=== PATIENT | female | born 1990 | race Caucasian/White ===

== ENCOUNTER 2019-01-13 12:47 | Observation (INO) ==
[2019-01-13 14:15] LABS: Hematocrit 39.8 % (35.3-44.9); Hemoglobin 13.5 g/dL (11.5-15.4); Mean Corpuscular HGB Conc 33.9 g/dL (31.6-35.5); Mean Corpuscular Hemoglobin 29.9 pg (28.0-33.3); Mean Corpuscular Volume 88.1 fL (83.0-100.0); Mean Platelet Volume 10.9 fL (9.4-12.4); Platelet Count 296 K/mcL (140-400); Red Blood Count 4.52 M/mcL (3.82-4.97); Red Cell Distribution Width 12.6 % (11.5-14.5); White Blood Count 15.5 K/mcL (4.3-11.1)
[2019-01-13 14:20] LABS: Bilirubin,Urine Negative (Negative); Blood,Urine Negative (Negative); Clarity,Urine Cloudy (Clear); Color,Urine Yellow (Yellow); Glucose,Urine (UA) Normal (Normal); Ketones,Urine Negative (Negative); Leukocyte Esterase,Urine Negative (Negative); Nitrite,Urine Negative (Negative); Protein,Urine Trace mg/dL (Neg-Trace); Specific Gravity,Urine 1.017 (1.010-1.025); Urobilinogen,Urine >=8.0 mg/dL (Normal)
[2019-01-13 14:26] LABS: Bacteria,Urine None Seen per hpf (None-Few); Hyaline Casts,Urine None Seen per lpf (None-Few); RBC,Urine 0-3 per hpf (0-3); Squamous Epithelial Cell,Urine Many per lpf (None-Few); WBC,Urine 0-3 per hpf (0-3)
[2019-01-13 14:29] LABS: BUN/Creatinine Ratio 4 (6-26); Blood Urea Nitrogen 3 mg/dL (6-20); Calcium 9.1 mg/dL (8.6-10.3); Carbon Dioxide 26 mEq/L (23-29); Chloride 103 mEq/L (98-107); Glucose 112 mg/dL (70-105); Osmolality,Calculated 277 (280-300); Potassium 3.2 mEq/L (3.5-5.1); Sodium 135 mEq/L (136-145); eGFR For African Americans > 60 (> 60); eGFR For Non-African Americans > 60 (> 60)
--- NOTE | 2019-01-13 14:42 | Emergency Department Note ---
Disposition Clinical Impression: Fever, Thoracic back pain Disposition: Admitted As Inpatient Condition: Fair Referrals: NONE,PCP [Primary Care Provider] - Forms: ED Satisfaction Letter Time of Disposition: 23:01 General Adult HPI - General Chief complaint: ED Back Pain/Injury Stated complaint: Low back pain,fever,chills,knee pain Time Seen by Provider: 01/13/19 13:02 Source: patient Limitations: no limitations Nursing Notes Reviewed: Yes Vital Signs Reviewed: Yes - History of Present Illness HPI Narrative: Right-sided back pain which started last night when she was getting into bed and the pain is worse with range of motion. Sharp. Her dominant right side with some midline. She denies IV drug use. She denies any dysuria or urinary frequency, blood in the urine or stool, vaginal bleeding or discharge. I inserted gradually. No vomiting. Does have fever. No abdominal pain. Social history: + smoking but no alcohol or drugs Pain Scale: 9 - Related Data Home Medications Medication Instructions Recorded Confirmed Desogestrel-Ethinyl Estradiol 1 tab PO DAILY 01/13/19 01/13/19 [Isibloom 28 Day Tablet] Allergies Allergy/AdvReac Type Severity Reaction Status Date / Time No Known Allergies Allergy Verified 01/13/19 22:57 All systems ED: reviewed and negative except as stated. 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 EYES: PERRL, no scleral icterus. NOSE: The nose is normal in appearance without rhinorrhea RESP: Normal chest excursion with respiration; breath sounds clear and equal bilaterally; no wheezes, rhonchi, or rales CARD: Regular rhythm, without murmurs, rub or gallop ABD: Non-distended; non-tender, soft,without rigidity, rebound or guarding SKIN: Normal for age and race; warm and dry; no apparent lesions Back: Normal appearance, right CVA tenderness moderate degree - General Limitations: no limitations General appearance: alert, in no apparent distress Course Vital Signs Temperature 100.8 F H 01/13/19 12:48 Pulse Rate 146 01/13/19 12:48 Respiratory Rate 6 01/13/19 12:48 Blood Pressure 156/104 01/13/19 12:48 O2 Sat by Pulse Oximetry 100 01/13/19 12:48 Temperature 102.4 F H 01/13/19 20:36 Pulse Rate 111 01/13/19 20:36 Respiratory Rate 16 01/13/19 20:36 Blood Pressure 127/80 01/13/19 20:36 O2 Sat by Pulse Oximetry 97 01/13/19 20:36 Oxygen Delivery Oxygen Delivery Room Air Medical Decision Making - MDM Narrative Medical decision making narrative: I did review the test results with minimal elevation in white blood cell count, lactate is less than 2, urine does not show signs of infection, CT scan is pending. 1441 I did go back and reassessed the patient and she does have increased amount of swelling in the right upper thoracic area of the back skin is normal in appearance. This area is warm and swollen and different than the left side. I will add a IV contrast thoracic CT for further assessment. She will also receive additional IV fluids and 10 IV Toradol 183 I did speak with the hospitalist Dr. Salinas who accepts the patient for admission. We have cultures pending. I did review the CT scan of the chest which does not reveal any acute abnormality but do feel that the likely source of infection is right upper back. I do not suspect a necrotizing soft tissue infection at this time she is not a surgical candidate but will need to be watched closely to ensure that her symptoms do not progress and she will be watched closely including vital signs with tachycardia watch for hypertension and clinically reassessed. 1 - Medical Records Medical records reviewed: Yes I reviewed the patient's medical records. - Lab Data Lab results reviewed: Yes I reviewed the patient's lab results. Result diagrams: 01/13/19 13:58 01/13/19 13:58 Lab Results 01/13/19 01/13/19 01/13/19 Range/Units 13:58 13:58 13:58 WBC 15.5 H (4.3-11.1) K/mcL RBC 4.52 (3.82-4.97) M/mcL Hgb 13.5 (11.5-15.4) g/dL Hct 39.8 (35.3-44.9) % MCV 88.1 (83.0-100.0) fL MCH 29.9 (28.0-33.3) pg MCHC 33.9 (31.6-35.5) g/dL RDW 12.6 (11.5-14.5) % Plt Count 296 (140-400) K/mcL MPV 10.9 (9.4-12.4) fL Sodium 135 L (136-145) mEq/L Potassium 3.2 L (3.5-5.1) mEq/L Chloride 103 (98-107) mEq/L Carbon Dioxide 26 (23-29) mEq/L BUN 3 L (6-20) mg/dL Creatinine 0.71 (0.60-1.20) mg/dL Est GFR ( Amer) > 60 (> 60) Est GFR (Non-Af Amer) > 60 (> 60) BUN/Creatinine Ratio 4 L (6-26) Glucose 112 H (70-105) mg/dL Calculated Osmolality 277 L (280-300) Lactic Acid 1.7 (0.5-2.2) mmol/L Calcium 9.1 (8.6-10.3) mg/dL Total Bilirubin 0.5 (0.3-1.0) mg/dL Direct Bilirubin 0.1 (0.0-0.2) mg/dL Indirect Bilirubin 0.4 (0.0-1.2) mg/dL AST 39 (13-39) Units/L ALT 10 (7-52) Units/L Alkaline Phosphatase 63 (34-104) Units/L Serum Total Protein 7.3 (6.4-8.9) g/dL Albumin 3.8 (3.5-5.7) g/dL Globulin 3.5 (2.4-3.5) g/dL Albumin/Globulin Ratio 1.1 (1.1-2.2) Lipase < 3 L (11-82) Units/L Urine Color (Yellow) Urine Clarity (Clear) Urine pH (5.0-8.0) pH Units Ur Specific [place] (1.010-1.025) Urine Protein (Neg-Trace) mg/dL Urine Glucose (UA) (Normal) mg/dL Urine Ketones (Negative) mg/dL Urine Blood (Negative) Urine Nitrite (Negative) Urine Bilirubin (Negative) Urine Urobilinogen (Normal) mg/dL Ur Leukocyte Esterase (Negative) Urine Microscopic RBC (0-3) per hpf Urine Microscopic WBC (0-3) per hpf Ur Squamous Epith Cells (None-Few) per lpf Urine Bacteria (None-Few) per hpf Hyaline Casts (None-Few) per lpf Urine Test (Negative) 01/13/19 01/13/19 Range/Units 14:04 14:04 WBC (4.3-11.1) K/mcL RBC (3.82-4.97) M/mcL Hgb (11.5-15.4) g/dL Hct (35.3-44.9) % MCV (83.0-100.0) fL MCH (28.0-33.3) pg MCHC (31.6-35.5) g/dL RDW (11.5-14.5) % Plt Count (140-400) K/mcL MPV (9.4-12.4) fL Sodium (136-145) mEq/L Potassium (3.5-5.1) mEq/L Chloride (98-107) mEq/L Carbon Dioxide (23-29) mEq/L BUN (6-20) mg/dL Creatinine (0.60-1.20) mg/dL Est GFR ( Amer) (> 60) Est GFR (Non-Af Amer) (> 60) BUN/Creatinine Ratio (6-26) Glucose (70-105) mg/dL Calculated Osmolality (280-300) Lactic Acid (0.5-2.2) mmol/L Calcium (8.6-10.3) mg/dL Total Bilirubin (0.3-1.0) mg/dL Direct Bilirubin (0.0-0.2) mg/dL Indirect Bilirubin (0.0-1.2) mg/dL AST (13-39) Units/L ALT (7-52) Units/L Alkaline Phosphatase (34-104) Units/L Serum Total Protein (6.4-8.9) g/dL Albumin (3.5-5.7) g/dL Globulin (2.4-3.5) g/dL Albumin/Globulin Ratio (1.1-2.2) Lipase (11-82) Units/L Urine Color Yellow (Yellow) Urine Clarity Cloudy A (Clear) Urine pH 7.0 (5.0-8.0) pH Units Ur Specific [place] 1.017 (1.010-1.025) Urine Protein Trace (Neg-Trace) mg/dL Urine Glucose (UA) Normal (Normal) mg/dL Urine Ketones Negative (Negative) mg/dL Urine Blood Negative (Negative) Urine Nitrite Negative (Negative) Urine Bilirubin Negative (Negative) Urine Urobilinogen >=8.0 H (Normal) mg/dL Ur Leukocyte Esterase Negative (Negative) Urine Microscopic RBC 0-3 (0-3) per hpf Urine Microscopic WBC 0-3 (0-3) per hpf Ur Squamous Epith Cells Many H (None-Few) per lpf Urine Bacteria None Seen (None-Few) per hpf Hyaline Casts None Seen (None-Few) per lpf Urine Test Negative (Negative)
[2019-01-13] MEDS: 0.9 % Sodium Chloride 1,000 ML IVC SCH ×2 (14:57→17:24)
[2019-01-13 17:04] LABS: Alanine Aminotransferase 10 Units/L (7-52); Albumin 3.8 g/dL (3.5-5.7); Albumin/Globulin Ratio 1.1 (1.1-2.2); Alkaline Phosphatase 63 Units/L (34-104); Aspartate Amino Transferase 39 Units/L (13-39); Bilirubin,Direct 0.1 mg/dL (0.0-0.2); Bilirubin,Indirect 0.4 mg/dL (0.0-1.2); Bilirubin,Total 0.5 mg/dL (0.3-1.0); Globulin 3.5 g/dL (2.4-3.5); Lipase < 3 Units/L (11-82); Total Protein 7.3 g/dL (6.4-8.9)
[2019-01-13] MEDS ORDERED: Ketorolac 15 MG/ML VIAL IVP ONE (18:38)
[2019-01-13] MEDS ORDERED: 0.9 % Sodium Chloride 500 ML IVC ONE (18:38)
[2019-01-13] MEDS ORDERED: Piperacillin/Tazobactam 3.375 GM in 0.9 % Sodium Chloride Mini Bag 100 ML IVPB ONE (19:11)
[2019-01-13] MEDS ORDERED: Isovue-370 500 ML BOTTLE IVP ONE ×2 (19:48→20:33)
--- NOTE | 2019-01-14 04:21 | Internal Med History&Physical ---
<Surinder Castillo - Last Filed: 01/14/19 04:46> Date of Encounter: 01/14/19 Time of Encounter: 04:46 Internal Medicine - H&P: HPI Chief complaint: Back pain Admitted From: Emergency Dept Plans for Post Hospital Care: Home History of present illness: Ms. Mcdaniel is a 28 year old female with no PMHx who presented to the ED with a complaint of low back pain and left knee pain starting yesterday. She states that she was trying to lay down when she had sudden onset pain. Back pain is thoracolumbar with radiation to the right paraspinal musculature. Both the knee and back pain are constant, she denies trauma, pulling/popping sensation. On arrival to the ED, she was septic. She states she felt warm at home but did not take a temperature. Vitals showed temp 102.6, HR 122, RR 20, BP 116/75 and she was tolerating 98% O2 on RA. She denies any symptoms of chills, rhinorrhea/congestion, sore throat, headache, neck pain/stiffness, cough, SOB, chest pain, nausea, vomiting, diarrhea, abdominal pain, dysuria/frequency/change in odor or appearance. She has not noticed any rashes, numbess, tingling. She is sexually active but denies discharge or previous STDs. Labs showed WBC of 15.5, Na of 135, K of 3.2. Lipase was wnl, and urine does not show signs of infection. CT was obtained of the abdomen/pelvis, chest and thoracic spine which was only significant for cholelithiasis without cholecystitis. Gallbladder US also showed the same. She was given 1.5 L bolus and one dose of vanc/zosyn. Blood cultures were drawn in ED. At time of my interview, she continues to have back and knee pain. No other ch anges to HPI. PMHx: denies PSHx: denies Social Hx: 1/2 PPD, denies alcohol or drug use Family hx: denies Past Med Surg Social Fam HX - Past Medical History Medical history: no medical history Psychiatric history: no psych history - Past Surgical History Surgical History: no surgical history - Social History Smoking Status: Current every day smoker Smokeless Tobacco Status: No Alcohol use: none Drug use: none - Family History Mother Living Status: Still Living Hx Family Cardiac Disorders: No Hx Family Respiratory Disorders: No Hx Family Cancer: No Hx Family GI Disorders: No Hx Family Genitourinary Disorders: No Hx Family Endocrine Disorder: Yes (diabetes) Hx Family Musculoskeletal Disorders: No Hx Family Neuromuscular Disorders: No Hx Family Neurologic Disorders: No Hx Family Autoimmune Disorders: No Hx Family Reproductive Disorders: No Hx Family Psychosocial Disorders: No Hx Family Medical Disorders: No Internal Medicine - H&P: Meds Desogestrel-Ethinyl Estradiol [Isibloom 28 Day Tablet] 1 tab PO DAILY 01/13/19 [History] Allergy/AdvReac Type Severity Reaction Status Date / Time No Known Allergies Allergy Verified 01/13/19 22:57 All Systems PM: A 10-system review of systems was performed and is negative for pertinent findings except as documented above in the HPI. Review of systems: - Constitutional: Denies fevers, chills, weight loss, generalized fatigue - Head/Neck: Denies TAPIA, neck stiffness - EENT: Denies vision changes/blurriness, rhinorrhea, congestion, sore throat, odynaphagia - CVS: Denies chest pain, palpitations, SUAREZ, orthopnea, edema, PND, - Pulm: Denies SOB, cough, sputum, wheezing - GI: Denies abdominal pain, anorexia, nausea, vomiting, diarrhea, constipation, melena - : Denies dysuria, increased frequency, urgency, hematuria, - Heme: Denies ease of bleeding or bruising - MSK: Admits to back and left knee pain. - Skin: Denies rashes, ulcers, color changes, - Neuro: Denies TAPIA, paresthesias, focal deficits, ataxia, - Constitutional Vitals: Temp Pulse Resp BP Pulse Ox 99.2 F 114 18 119/75 98 01/14/19 02:10 01/14/19 02:10 01/14/19 02:10 01/14/19 02:10 01/14/19 00:00 Exam: Gen.: Vitals noted. Mild distress. AAOx3 HEENT: PERRL/EOMI, oropharynx clear, Normocephalic, atraumatic, MMM Neck: Supple. No adenopathy. No thyroid nodules. Full ROM, no tenderness Cardiac: Tachycardic, regular rhythm, no murmur, +S1/S2, No BLE edema Pulmonary: CTA bilaterally, no wheezes, rales or rhonchi, equal chest expansion, unlabored breathing Abdomen: soft, nontender, BS noted, no guarding, no palpable HSM Back: Mild tenderness to midline lumbar palpation. No CVA tenderness Skin: warm and dry, chronic rash on left arm per patient MSK: ROM intact, joint swelling noted of left knee, tender to palpation. , gait no assessed while in bed. Non tender calf or clubbing Neuro: A&Ox3, moves all extremities, no focal deficits, sensation intact Psych: Appropriate mood and behavior, AOx3 Internal Med - H&P Results - Labs CBC & Chem 7: 01/13/19 13:58 01/13/19 13:58 Labs: Short CBC 01/13/19 Range/Units 13:58 WBC 15.5 H (4.3-11.1) K/mcL Hgb 13.5 (11.5-15.4) g/dL Hct 39.8 (35.3-44.9) % Plt Count 296 (140-400) K/mcL BMP 01/13/19 13:58 Sodium 135 L Potassium 3.2 L Chloride 103 Carbon Dioxide 26 BUN 3 L Creatinine 0.71 Glucose 112 H Calcium 9.1 Liver Function 01/13/19 Range/Units 13:58 Total Bilirubin 0.5 (0.3-1.0) mg/dL Direct Bilirubin 0.1 (0.0-0.2) mg/dL AST 39 (13-39) Units/L ALT 10 (7-52) Units/L Alkaline Phosphatase 63 (34-104) Units/L Albumin 3.8 (3.5-5.7) g/dL Urine 01/13/19 Range/Units 14:04 Urine Color Yellow (Yellow) Urine Clarity Cloudy A (Clear) Urine pH 7.0 (5.0-8.0) pH Units Ur Specific [place] 1.017 (1.010-1.025) Urine Protein Trace (Neg-Trace) mg/dL Urine Glucose (UA) Normal (Normal) mg/dL - Impressions ITS Impressions Abdomen/Pelvis CT 01/13/19 13:36 IMPRESSION: No acute abnormality. Cholelithiasis. D/ / 01/13/2019 16:01:47 Papo Dias MD / Elham mancuso Interpreting Provider: Papo Dias MD Gallbladder Ultrasound 01/13/19 16:18 IMPRESSION: Cholelithiasis. Cholecystitis is considered unlikely with a negative Hernandez's sign. D/ / Santino Al MD / Santino Al MD Interpreting Provider: Santino Al MD Thoracic Spine CT 01/13/19 19:09 IMPRESSION: No CT evidence of thoracic spine infection or mass. D/ / 01/13/2019 20:23:56 Papo Dias MD / jonathan Interpreting Provider: Papo Dias MD Chest CT 01/13/19 20:33 IMPRESSION: No dorsal chest wall mass. D/ / 01/13/2019 22:12:44 Papo Dias MD / jonathan Interpreting Provider: Papo Dias MD - Assessment and Plan (1) Sepsis Current Visit: Yes Status: Suspected Assessment and plan: - Meets 4/4 SIRS criteria with fever 102.6, HR 122, RR 20 and WBC of 15.5 - Source is unclear at this time - Organism unclear - Differential include arthropod/tick bourne illness, gonoccal/septic joint vs viral illness - Patient is denying all ROS save for joint and back pain - Labs show WBC of 15 but otherwise wnl including LFTs, UA - CT scans of chest, abd/pelvis do not show signs of infection - Blood cultures obtained in ED x 2 - Received one dose of vanc/zosyn in ED Plan - Will start Rocephin and doxycycline to cover potential sources above - No high risk factors for MRSA or pseudomonas, however doxycycline should cover community acquired MRSA - Will order lyme, RMSF, [place], flu, chlamydia/gonorrhea - Will also obtain CT of the knee to evaluate for fluid collection Qualifiers: Sepsis type: sepsis due to unspecified organism Qualified Code(s): A41.9 - Sepsis, unspecified organism (2) Joint pain Current Visit: Yes Status: Acute Assessment and plan: as above unclear etiology at this time, possible septic joint but clinical exam point more toward viral illness vs possible gonococcal infection Will obtain labs and CT scan as above Qualifiers: Joint pain location: knee Laterality: left Qualified Code(s): M25.562 - Pain in left knee (3) Hypokalemia Current Visit: Yes Status: Acute Assessment and plan: K of 3.2 Will replace and monitor check mg level (4) Hyponatremia Current Visit: Yes Status: Acute Assessment and plan: Na of 135 unknown baseline mild, possible due to insensible water loss from fever getting fluids continue to monitor (5) Tobacco abuse Current Visit: Yes Status: Acute Assessment and plan: Smokes 1/2 PPD Advised cessation (6) DVT prophylaxis Current Visit: Yes Status: Acute Assessment and plan: heparin - Time Spent With Patient Total time spent is greater than 50% in coordination of care (as documented) at patient's floor/unit and/or counseling patient: <Gigi Lehman - Last Filed: 01/14/19 07:22> Date of Encounter: 01/14/19 Internal Medicine - H&P: HPI History of present illness: Ms. Mcdaniel is a 28 year old female All Systems PM: A 10-system review of systems was performed and is negative for pertinent findings except as documented above in the HPI. - Constitutional Vitals: Temp Pulse Resp BP Pulse Ox 99.2 F 117 18 138/86 97 01/14/19 06:32 01/14/19 06:32 01/14/19 06:32 01/14/19 06:32 01/14/19 06:32 Internal Med - H&P Results - Labs CBC & Chem 7: 01/13/19 13:58 01/13/19 13:58 Labs: Short CBC 01/13/19 Range/Units 13:58 WBC 15.5 H (4.3-11.1) K/mcL Hgb 13.5 (11.5-15.4) g/dL Hct 39.8 (35.3-44.9) % Plt Count 296 (140-400) K/mcL BMP 01/13/19 13:58 Sodium 135 L Potassium 3.2 L Chloride 103 Carbon Dioxide 26 BUN 3 L Creatinine 0.71 Glucose 112 H Calcium 9.1 Liver Function 01/13/19 Range/Units 13:58 Total Bilirubin 0.5 (0.3-1.0) mg/dL Direct Bilirubin 0.1 (0.0-0.2) mg/dL AST 39 (13-39) Units/L ALT 10 (7-52) Units/L Alkaline Phosphatase 63 (34-104) Units/L Albumin 3.8 (3.5-5.7) g/dL Urine 01/13/19 Range/Units 14:04 Urine Color Yellow (Yellow) Urine Clarity Cloudy A (Clear) Urine pH 7.0 (5.0-8.0) pH Units Ur Specific [place] 1.017 (1.010-1.025) Urine Protein Trace (Neg-Trace) mg/dL Urine Glucose (UA) Normal (Normal) mg/dL - Impressions ITS Impressions Abdomen/Pelvis CT 01/13/19 13:36 IMPRESSION: No acute abnormality. Cholelithiasis. D/ / 01/13/2019 16:01:47 Papo Dias MD / Elham Tucker Interpreting Provider: Paop Dias MD Gallbladder Ultrasound 01/13/19 16:18 IMPRESSION: Cholelithiasis. Cholecystitis is considered unlikely with a negative Hernandez's sign. D/ / Santino Al MD / Santino Al MD Interpreting Provider: Santino Al MD Thoracic Spine CT 01/13/19 19:09 IMPRESSION: No CT evidence of thoracic spine infection or mass. D/ / 01/13/2019 20:23:56 Papo Dias MD / jonathan Interpreting Provider: Papo Dias MD Chest CT 01/13/19 20:33 IMPRESSION: No dorsal chest wall mass. D/ / 01/13/2019 22:12:44 Papo Dias MD / jonathan Interpreting Provider: Papo Dias MD - Time Spent With Patient Total time spent is greater than 50% in coordination of care (as documented) at patient's floor/unit and/or counseling patient: - Attending Attestation I saw and evaluated the patient. I reviewed the residents note, performed my own physical examination and agree with findings and plan as documented in the residents note. Patient seen and examined on 01/14/19. Unknown etiology of her sepsis, will try and rule out septic joint, STIs, viral respiratory illness and bug bite. Patient has some pain with palpation of her left knee, otherwise no rash noted. Follow up results of the lab work, continue to monitor.
[2019-01-14] MEDS ORDERED: Naloxone 0.4 MG/ML INJ IVP PRN (04:36)
[2019-01-14] MEDS ORDERED: Ondansetron 4 MG/2 ML VIAL IVP PRN (04:36)
[2019-01-14] MEDS ORDERED: 0.9 % Sodium Chloride 1,000 ML IVC ONE (04:38)
[2019-01-14] MEDS: *HR* HYDROcodone/Acet 5/325 mg TABLET PO PRN ×3 (06:22→21:15)
[2019-01-14] MEDS: Doxycycline 100 MG in 0.9 % Sodium Chloride Mini Bag 100 ML IVPB SCH ×2 (06:22→17:35)
[2019-01-14 07:01] LABS: Basophils # 0.1 K/mcL (0.0-0.2); Basophils % 0.4 %; Hematocrit 36.2 % (35.3-44.9); Immature Granulocytes % 0.5 % (0-4); Lymphocytes # 2.4 K/mcL (0.6-4.6); Lymphocytes % 14.4 %; Mean Corpuscular HGB Conc 32.9 g/dL (31.6-35.5); Mean Corpuscular Hemoglobin 29.5 pg (28.0-33.3); Mean Corpuscular Volume 89.8 fL (83.0-100.0); Mean Platelet Volume 11.3 fL (9.4-12.4); Monocytes # 1.4 K/mcL (0.0-1.3); Monocytes % 8.6 %; Neutrophils # 12.7 K/mcL (1.6-8.9); Platelet Count 256 K/mcL (140-400); Red Blood Count 4.03 M/mcL (3.82-4.97); Red Cell Distribution Width 12.9 % (11.5-14.5); Segmented Neutrophils % 76.1 %; White Blood Count 16.7 K/mcL (4.3-11.1)
[2019-01-14 07:18] LABS: BUN/Creatinine Ratio 4 (6-26); Blood Urea Nitrogen 3 mg/dL (6-20); Calcium 8.5 mg/dL (8.6-10.3); Carbon Dioxide 23 mEq/L (23-29); Chloride 100 mEq/L (98-107); Glucose 103 mg/dL (70-105); Hemoglobin 11.9 g/dL (11.5-15.4); Osmolality,Calculated 289 (280-300); Potassium 3.1 mEq/L (3.5-5.1); Sodium 141 mEq/L (136-145); eGFR For African Americans > 60 (> 60); eGFR For Non-African Americans > 60 (> 60)
[2019-01-14] MEDS: cefTRIAXone 1,000 MG in Water for inj. (sterile) 10 ML IVP SCH (08:23)
--- NOTE | 2019-01-14 12:49 | Internal Med Progress Note ---
Hospitalist Progress Note - Encounter Date of Encounter: 01/14/19 Time of Encounter: 09:30 - Subjective Interval History: Ms. Mcdaniel is a 28 year old female with no PMHx who presented to the ED with a complaint of low back pain and left knee pain starting a day prior to ER visit. She states that she was trying to lay down when she had sudden onset pain. Back pain is thoraco lumbar with radiation to the right paraspinal musculature. Both the knee and back pain are constant, she denies trauma, pulling/popping sensation. On arrival to the ED, she was septic. Vitals showed temp 102.6, HR 122, RR 20, BP 116/75 and she was tolerating 98% O2 on RA. Labs showed WBC of 15.5, Na of 135, K of 3.2. Lipase was wnl, and urine does not show signs of infection. CT was obtained of the abdomen/pelvis, chest and thoracic spine which was only significant for cholelithiasis without cholecystitis. Gallbladder US also showed the same. She was given 1.5 L bolus and one dose of vanc/zosyn. Blood cultures were drawn in ED. she was admitted in the hospital and placed on acute dialysis nurse. She was started on empirical antibiotic IV Rocephin and doxycycline. Patient stated she is feeling much better today. She still has fever spikes with T max - 102.4 - Exam Vitals: Temp Pulse Resp BP Pulse Ox 99.2 F 102 16 120/78 98 01/14/19 11:19 01/14/19 11:19 01/14/19 11:19 01/14/19 11:19 01/14/19 11:19 Exam: Gen: Alert, awake, Oriented to time,place and person Chest: Diminished breath sounds B/L, No wheezing, No crackles, No rales Heart: S1S2+ RRR No murmurs Abd: Soft, NT, BS +, No organomegaly Ext: No edema, pulses are palpable, No calf tenderness Left Knee; No erythema, no tenderness, no swelling noticed Neuro : No acute focal neuro deficits noticed Skin: No rash. - Assessment and Plan (1) Sepsis Current Visit: Yes Status: Acute Assessment and Plan: Still meets sepsis criteria with T max 102.6 , tachycardia and elevated WBC No clear source of inf CT of Knee - did not show any effusion.. No erythema / swelling on Knee noticed with examinations CT of Abd / Pelvis , RUQ US of Abd showed - cholelithiasis.. No cholecystitis.. Hernandez's sign negative Resp viral panel negative ordered ESR and CRP cont empirical abx IV Rocephin and Doxy will f/u on Chlamydia, Gonorrhea and other serological tests Urine cx - P Blood cx- P (2) Fever Current Visit: Yes Status: Acute Assessment and Plan: as above (3) Knee pain, left Current Visit: Yes Status: Acute Assessment and Plan: could be due to knee sprain no signs of inf cont close monitoring (4) Hypokalemia Current Visit: Yes Status: Acute Assessment and Plan: cont replacing (5) Tobacco abuse Current Visit: Yes Status: Acute Assessment and Plan: Counseled to quit smoking placed on nicotine patch (6) Obesity (BMI 30-39.9) Current Visit: Yes Status: Acute Assessment and Plan: counseled to loose weight - Time Spent with Patient Total time spent is greater than 50% in coordination of care (as documented) at patient's floor/unit and/or counseling patient: Internal Medicine: Result - Labs CBC & Chem 7: 01/14/19 06:20 01/14/19 06:20 Labs: Short CBC 01/13/19 01/14/19 Range/Units 13:58 06:20 WBC 15.5 H 16.7 H (4.3-11.1) K/mcL Hgb 13.5 11.9 D (11.5-15.4) g/dL Hct 39.8 36.2 (35.3-44.9) % Plt Count 296 256 (140-400) K/mcL Neutrophils # 12.7 H (1.6-8.9) K/mcL BMP 01/13/19 01/14/19 13:58 06:20 Sodium 135 L 141 Potassium 3.2 L 3.1 L Chloride 103 100 Carbon Dioxide 26 23 BUN 3 L 3 L Creatinine 0.71 0.68 Glucose 112 H 103 Calcium 9.1 8.5 L Liver Function 01/13/19 Range/Units 13:58 Total Bilirubin 0.5 (0.3-1.0) mg/dL Direct Bilirubin 0.1 (0.0-0.2) mg/dL AST 39 (13-39) Units/L ALT 10 (7-52) Units/L Alkaline Phosphatase 63 (34-104) Units/L Albumin 3.8 (3.5-5.7) g/dL Urine 01/13/19 Range/Units 14:04 Urine Color Yellow (Yellow) Urine Clarity Cloudy A (Clear) Urine pH 7.0 (5.0-8.0) pH Units Ur Specific [place] 1.017 (1.010-1.025) Urine Protein Trace (Neg-Trace) mg/dL Urine Glucose (UA) Normal (Normal) mg/dL - Impressions Impressions Abdomen/Pelvis CT 01/13/19 13:36 IMPRESSION: No acute abnormality. Cholelithiasis. D/ / 01/13/2019 16:01:47 Papo Dias MD / Elham culver Interpreting Provider: Papo Dias MD Gallbladder Ultrasound 01/13/19 16:18 IMPRESSION: Cholelithiasis. Cholecystitis is considered unlikely with a negative Hernandez's sign. D/ / Santino Al MD / Santino Al MD Interpreting Provider: Santino Al MD Thoracic Spine CT 01/13/19 19:09 IMPRESSION: No CT evidence of thoracic spine infection or mass. D/ / 01/13/2019 20:23:56 Papo Dias MD / jonathan Interpreting Provider: Papo Dias MD Chest CT 01/13/19 20:33 IMPRESSION: No dorsal chest wall mass. D/ /13/2019 22:12:44 Papo Dias MD / jonathan Interpreting Provider: Papo Dias MD Knee CT 01/14/19 08:00 IMPRESSION: 1. No aggressive osseous destruction. No acute fracture or gross dislocation. 2. No sizable suprapatellar joint effusion. D/ : / 01/14/2019 09:02:57 Juan M Rivera MD / earnold Interpreting Provider: Juan M Rivera MD Consult Discharge Plan - Plan Referrals: NONE,PCP [Primary Care Provider] - (1) Sepsis Qualifiers: Sepsis type: sepsis due to unspecified organism Qualified Code(s): A41.9 - Sepsis, unspecified organism
[2019-01-14] MEDS: Acetaminophen 325 MG TABLET PO PRN (17:35)
[2019-01-15 00:30] LABS: Chlamydia Trachomatis DNA Ur NOT DETECTED (Not Detect)
[2019-01-15 03:51] VITALS: BP 107/74
[2019-01-15 04:34] LABS: Hematocrit 35.3 % (35.3-44.9); Hemoglobin 11.6 g/dL (11.5-15.4); Mean Corpuscular HGB Conc 32.9 g/dL (31.6-35.5); Mean Corpuscular Hemoglobin 29.7 pg (28.0-33.3); Mean Corpuscular Volume 90.3 fL (83.0-100.0); Mean Platelet Volume 11.4 fL (9.4-12.4); Platelet Count 235 K/mcL (140-400); Red Blood Count 3.91 M/mcL (3.82-4.97); Red Cell Distribution Width 13.3 % (11.5-14.5)
[2019-01-15 04:51] LABS: BUN/Creatinine Ratio 8 (6-26); Blood Urea Nitrogen 5 mg/dL (6-20); Calcium 8.8 mg/dL (8.6-10.3); Carbon Dioxide 26 mEq/L (23-29); Chloride 109 mEq/L (98-107); Glucose 95 mg/dL (70-105); Osmolality,Calculated 287 (280-300); Potassium 3.8 mEq/L (3.5-5.1); Sodium 140 mEq/L (136-145); eGFR For African Americans > 60 (> 60); eGFR For Non-African Americans > 60 (> 60)
[2019-01-15] MEDS: Doxycycline 100 MG in 0.9 % Sodium Chloride Mini Bag 100 ML IVPB SCH (05:56)
[2019-01-15] MEDS: *HR* HYDROcodone/Acet 5/325 mg TABLET PO PRN (06:03)
[2019-01-15] MEDS: cefTRIAXone 1,000 MG in Water for inj. (sterile) 10 ML IVP SCH (08:46)
[2019-01-15] MEDS: Acetaminophen 325 MG TABLET PO PRN (08:47)
--- NOTE | 2019-01-15 10:23 | Discharge Summary ---
- NOTES TO OUTPATIENT PROVIDER Notes to Outpatient Provider: f/u with PCP in one week. Please quit smoking. Orders not resulted at time of discharge: Pending orders 01/13/19 19:21 Culture,Blood [BC] Stat 01/14/19 06:20 Borrelia Species by PCR Routine [place] Mtn Spotted Ab,IgG & IgM Routine West Nile Virus RNA Routine Date of Encounter: 01/15/19 Time of Encounter: 10:18 - Discharge Diagnosis (1) Sepsis Priority: Primary Status: Acute Qualifiers: Sepsis type: sepsis due to unspecified organism Qualified Code(s): A41.9 - Sepsis, unspecified organism (2) Fever Priority: Primary Status: Acute Qualifiers: Fever type: unspecified Qualified Code(s): R50.9 - Fever, unspecified (3) Knee pain, left Priority: Primary Status: Acute Qualifiers: Chronicity: acute Qualified Code(s): M25.562 - Pain in left knee (4) Hypokalemia Priority: Secondary Status: Acute (5) Tobacco abuse Priority: Secondary Status: Acute (6) Obesity (BMI 30-39.9) Priority: Secondary Status: Acute Hospital course: Ms. Mcdaniel is a 28 year old female with no PMHx who presented to the ED with a complaint of low back pain and left knee pain starting a day prior to ER visit. She states that she was trying to lay down when she had sudden onset pain. Back pain is thoraco lumbar with radiation to the right paraspinal musculature. Both the knee and back pain are constant, she denies trauma, pulling/popping sensation. On arrival to the ED, she was septic. Vitals showed temp 102.6, HR 122, RR 20, BP 116/75 and she was tolerating 98% O2 on RA. Labs showed WBC of 15.5, Na of 135, K of 3.2. Lipase was wnl, and urine does not show signs of infection. CT was obtained of the abdomen/pelvis, chest and thoracic spine which was only significant for cholelithiasis without cholecystitis. Gallbladder US also showed the same. She was given 1.5 L bolus and one dose of vanc/zosyn. Blood cultures were drawn in ED. she was admitted in the hospital and placed on surveillance system monitor. She was started on empirical antibiotic IV Rocephin and doxycycline. She is afebrile for 24 hrs. Her WBC started trending down. All her infectious work up came back as negative. Patient stated she is feeling much better today. Blood cx showedn no growth. Urine cx - no growth. Her influenza A & B came back as negative. Her GC and Chlamydia were non reactive. His CT of Knee did not show any effusion. Pt stated she is feeling much better now. So will d/c her home in stable condition today with PO Abx Doxy for 5 days for possible bronchitis. - Time Spent with Patient Total time spent providing and/or coordinating discharge services: - Discharge Medications Prescriptions: New Doxycycline Hyclate 100 mg PO BID #10 tablet Continued Desogestrel-Ethinyl Estradiol [Isibloom 28 Day Tablet] 1 tab PO DAILY Home Medications: Desogestrel-Ethinyl Estradiol [Isibloom 28 Day Tablet] 1 tab PO DAILY 01/13/19 [History] Doxycycline Hyclate 100 mg PO BID #10 tablet 01/15/19 [Rx] Nicotine Patch [Nicoderm] 14 mg TD DAILY #30 patch.td24 01/15/19 [Rx] Allergies/Adverse Reactions: Allergy/AdvReac Type Severity Reaction Status Date / Time No Known Allergies Allergy Verified 01/13/19 22:57 Date of admission: 01/14/19 00:22 Primary care physician: PCP NONE - Constitutional Vitals: Temp Pulse Resp BP Pulse Ox 98.3 F 86 19 107/74 98 01/15/19 03:47 01/15/19 03:47 01/15/19 03:47 01/15/19 03:47 01/15/19 03:47 General appearance: Present: cooperative, A&O X 3, no acute distress, answers questions appropriately Exam: Gen: Alert, awake, Oriented to time,place and person Chest: Diminished breath sounds B/L, No wheezing, No crackles, No rales Heart: S1S2+ RRR No murmurs Abd: Soft, NT, BS +, No organomegaly Ext: No edema, pulses are palpable, No calf tenderness Left Knee; No erythema, no tenderness, no swelling noticed Neuro : No acute focal neuro deficits noticed Skin: No rash. - Patient Status Disposition: Home, Self-Care Condition: Good Overall status at discharge: patient is back to baseline - Discharge Instructions Follow Up With: Lizette Bowers CNP [Advanced Practice Nurse] - 02/09/19 1:00 pm (You will be recieving a packet in the mail, please fill out packet and bring ot appointment with you. Please bring ID, insurance cards, and any medications includin OTC to appointment. This office requires a 24 hour notice to cancel or reschedule appointment. Please call [phone] to do so, if needed.) Forms: Work/School Release, Inpatient Work/School Release, Work/School Release - Diet and Activity Activity: increase activity as tolerated Diet: low salt diet
[2019-01-19 02:18] LABS: West Nile Virus PCR Source SERUM
== END 2019-01-15 10:58 | disposition home or self-care (01) ==
LOC: EMEROOARM 12:47 → 3BNU 12:47 → SUATTDRO 01-14 00:22 → 3BNU 01-14 01:06
PROVIDERS: ADMIT Pediatrics; ATTEND Family Medicine